=== PATIENT | male | born 1950 | race Caucasian/White ===

== ENCOUNTER 2016-05-17 09:54 | Emergency (ER) | payer BC ==
[~2016-05-17] VITALS: Ht 167.6 cm; Wt 78.6 kg
[~2016-05-17 09:54] MED LIST changes: -MACROBID 1100 MG/CAP PO; -NORCO 325 MG-51 TAB PO; -ZOFRAN ODT4 MG PO
[2016-05-17 09:57] VITALS: BP 101/63; PULSE 81; TEMP 98.4
[2016-05-17 10:43] LABS: PH 7 (5-8); SQUAMOUS EPITHELIAL 0-2 /hpf; URINE APPEARANCE Hazy; URINE BACTERIA None Seen /hpf; URINE BILIRUBIN Negative (NEGATIVE); URINE BLOOD 3+ (NEGATIVE); URINE COLOR Yellow; URINE GLUCOSE Negative (NEGATIVE); URINE KETONE Negative (NEGATIVE); URINE RBC >50 /hpf; URINE UROBILINOGEN Negative (NEGATIVE)
[2016-05-17] MEDS ORDERED: NORCO 325 MG-51 TAB PO (11:17)
[2016-05-17] MEDS ORDERED: MACROBID 1100 MG/CAP PO (11:18)
[2016-05-17 12:14] LABS: BASO # 0.1 (0.0-0.2); BASO % 0.8 % (0.0-2.0); EOS # 0.1 (0.0-0.7); EOS % 0.8 % (0-4.0); GRAN # 4.7 (1.4-6.5); GRAN % 79.3 % (42.2-75.2); LYMPH # 0.7 (1.2-3.4); LYMPH % 12.2 % (20.0-51.0); MEAN CELL VOLUME 91 fl (80.0-100.0); MEAN CORPUSCULAR HGB CONC 31 g/dl (33.0-37.0); MEAN PLATELET VOLUME 10.2 fl (7.4-10.4); MONO # 0.4 (0.1-0.6); MONO % 6.6 % (1.7-9.3); PLATELET COUNT 199 K/mm3 (130-400); RED BLOOD COUNT 3.39 M/mm3 (4.20-5.60); REDCELL DISTRIBUTION WIDTH-CV 13.9 % (11.5-14.5); WHITE BLOOD COUNT 5.9 K/mm3 (4.8-10.8)
[2016-05-17 12:17] LABS: HEMATOCRIT 30.8 % (42.0-52.0); HEMOGLOBIN 9.6 g/dl (13.5-18.0); MEAN CORPUSCULAR HEMOGLOBIN 28 pg (27.0-31.0)
[2016-05-17 12:24] LABS: BILIRUBIN,TOTAL 0.8 mg/dL (0.0-1.0); CREATININE, serum 1.41 mg/dL (0.66-1.25); POTASSIUM 4.3 mmol/L (3.4-5.0); TOTAL PROTEIN 6.9 gm/dL (6.4-8.2)
[2016-05-17 12:41] LABS: ADJUSTED CALCIUM 9.7 mg/dL (8.4-10.2); ALBUMIN 3.9 gm/dL (3.5-5.0); CALCIUM 9.6 mg/dL (8.4-10.2)
[2016-05-17] MEDS ORDERED: ZOFRAN ODT4 MG PO (14:27)
== END 2016-05-17 14:35 | disposition home or self-care (01) ==
LOC: COL.ER 09:54
PROVIDERS: Emergency Medicine
DX: N20.0 Calculus of kidney (principal); Z87.442 Personal history of urinary calculi; I10 Essential (primary) hypertension
CPT/HCPCS: J7030

== ENCOUNTER → 2016-05-17 | Outpatient (CLI) | payer BC ==
[~2016-05-17] MED LIST: ALEVE 220MG220 MG PO; ANTARA PO; APIDRA SOLOS100 U/ML SC; APIDRA100 U/ML SC; ASPIR-LOW81 MG PO; ASPIRIN 81M81 MG/TA2 PO; BENADRYL25 M2 PO; CELLCEPT 5500 MG/TAB PO; GLUCOPHAGE500 MG/TAB PO; LANTUS SOLOS100 U/ML SC; LIPITOR20 MG PO; LOPRESSOR 550 MG/TAB PO; MACROBID 1100 MG/CAP PO; METFORMIN500 MG PO; NORCO 325 MG-51 TAB PO; NOVOLOG FLEX100 U/ML SC; PLAVIX 75MG TAB75 MG PO; PRAVACHOL 40MG40 MG PO; PRAVACHOL40 MG PO; PRINIVIL20 MG PO; PROTONIX 40MG T40 MG PO; SPIRIVA INH IH; SYNTHROID0.1 MG/TAB PO; TRENTAL 400MG400 MG PO; TRENTAL400 MG PO; TRILIPIX 135MG PO; ZESTRIL 10MG10 MG PO; ZESTRIL 20MG TA20 MG PO; ZOFRAN ODT4 MG PO; [UNRECOGNIZED DRUG - OTHER] PO
== END ==
LOC: COL.RAD 09:25
DX: R31.9 Hematuria, unspecified (principal); N20.0 Calculus of kidney; Z87.442 Personal history of urinary calculi; K80.11 Calculus of gallbladder with chronic cholecystitis with obstruction

== ENCOUNTER 2016-10-17 15:44 | Emergency (ER) | payer BC ==
[~2016-10-17] VITALS: Ht 170.2 cm; Wt 78.0 kg
[~2016-10-17 15:44] MED LIST changes: +MACROBID 1100 MG/CAP PO; +NORCO 325 MG-51 TAB PO; +ZOFRAN ODT4 MG PO
[2016-10-17 15:52] VITALS: TEMP 98.8
[2016-10-17 16:40] LABS: BASO # 0.1 (0.0-0.2); BASO % 1.3 % (0.0-2.0); EOS # 0.1 (0.0-0.7); EOS % 1.3 % (0-4.0); GRAN # 4.6 (1.4-6.5); GRAN % 73.4 % (42.2-75.2); LYMPH % 15.1 % (20.0-51.0); MEAN CELL VOLUME 90 fl (80.0-100.0); MEAN CORPUSCULAR HGB CONC 32 g/dl (33.0-37.0); MEAN PLATELET VOLUME 10.3 fl (7.4-10.4); MONO # 0.5 (0.1-0.6); MONO % 8.4 % (1.7-9.3); PLATELET COUNT 254 K/mm3 (130-400); RED BLOOD COUNT 3.52 M/mm3 (4.20-5.60); REDCELL DISTRIBUTION WIDTH-CV 14.2 % (11.5-14.5); WHITE BLOOD COUNT 6.3 K/mm3 (4.8-10.8)
[2016-10-17 16:41] LABS: HEMATOCRIT 31.6 % (42.0-52.0); MEAN CORPUSCULAR HEMOGLOBIN 28 pg (27.0-31.0)
[2016-10-17 16:45] LABS: INR 1.1 (0.8-3.0); PROTHROMBIN TIME 12.6 SECONDS (9.7-12.8)
[2016-10-17 16:47] LABS: PARTIAL THROMBOPLASTIN TIME 29.5 SECONDS (26.0-37.0)
[2016-10-17 16:52] LABS: ADJUSTED CALCIUM 9.7 mg/dL (8.4-10.2); ALANINE AMINOTRANSFERASE 22 U/L (21-72); ALBUMIN 4.3 gm/dL (3.5-5.0); ALKALINE PHOSPHATASE 48 U/L (50-136); ANION GAP 12 mmol/L (7-16); BLOOD UREA NITROGEN 30 mg/dL (9-20); CALCIUM 9.9 mg/dL (8.4-10.2); CARBON DIOXIDE 27 mmol/L (22-30); CHLORIDE 101 mmol/L (98-107); CREATININE, serum 2.64 mg/dL (0.66-1.25); GLUCOSE 83 mg/dL (74-106); POTASSIUM 5.2 mmol/L (3.4-5.0); SODIUM 140 mmol/L (137-145); TOTAL PROTEIN 7.4 gm/dL (6.4-8.2)
[2016-10-17 17:04] LABS: TROPONIN-I < 0.012 ng/mL (0.000-0.034)
[2016-10-17 19:56] VITALS: BP 150/82; PULSE 79
== END 2016-10-17 19:56 | disposition home or self-care (01) ==
LOC: COL.ER 15:44
PROVIDERS: Emergency Medicine
DX: E86.0 Dehydration (principal); N28.9 Disorder of kidney and ureter, unspecified; R55 Syncope and collapse; E11.9 Type 2 diabetes mellitus without complications; I25.10 Atherosclerotic heart disease of native coronary artery without angina pectoris; Z87.891 Personal history of nicotine dependence; Z86.73 Personal history of transient ischemic attack (TIA), and cerebral infarction without residual deficits; Z79.02 Long term (current) use of antithrombotics/antiplatelets; Z85.21 Personal history of malignant neoplasm of larynx
CPT/HCPCS: J2765; J7030

== ENCOUNTER → 2017-07-21 | Outpatient (CLI) | payer BC | LOC: COL.RAD 09:34 | DX: N28.89 Other specified disorders of kidney and ureter (principal); N20.0 Calculus of kidney ==

== ENCOUNTER 2017-08-22 16:30 | Outpatient (RCR) | payer BC | END 2017-11-12 | disposition home or self-care (01) | LOC: MKS.ESL.PT | DX: M75.111 Incomplete rotator cuff tear or rupture of right shoulder, not specified as traumatic (principal) ==

== ENCOUNTER 2018-06-09 17:17 | Observation (INO) | payer MEDICARE, OTHER ==
[2018-06-09] VITALS (9 sets, daily range): BP systolic 11–150; BP diastolic 45–89; PULSE 96–132; TEMP 98.3–99.1
[~2018-06-09] VITALS: Ht 170.2 cm; Wt 68.9 kg
[2018-06-09] MEDS ORDERED: PROTONIX 40MG T40 MG PO (17:57)
--- NOTE | 2018-06-09 18:00 | NUR ---
Patient quickly admitted to room 331. Iv started in AC by retail warehouse associate, patient a hard IV stick. LR to gravity. Called [facility] & verified home meds list. Patient not completely sure of home meds. Laurie took patient to OR. Reported off to Julissa MCCRARY
--- NOTE | 2018-06-09 20:33 | NUR ---
Pts gag reflux assessed as positive. Water provided. Pt swallowing without difficulty.
--- NOTE | 2018-06-09 23:05 | NUR ---
Dr. Aldridge contacted for orders on patient. Pt was supposed to dishcarge but no orders where in the computer and pt does not want to go home tonight. Orders received to make pt OBS. Pt will discharge in AM.
--- NOTE | 2018-06-09 23:20 | NUR ---
gas station supervisor discovered that pt has two active accounts in the computer. Transfer and discharge orders were put in on SDC account, but pt armband and labels match the account for the surgical room pt is in.
--- NOTE | 2018-06-10 06:30 | NUR ---
Pt resting in bed. No distress noted. Pt slept throughout the night without difficulty.
--- NOTE | 2018-06-10 07:08 | NUR ---
Report from Julissa MCCRARY.
[2018-06-10 07:29] VITALS: BP 103/54; PULSE 94; TEMP 98.1
--- NOTE | 2018-06-10 10:08 | NUR ---
DR. RAMÍREZ CONTACTED AND HE HAS DISCHARGED PT. PT ESCORTED TO FRONT BY STAFF AMBULATORY.
[2018-06-11] MEDS ORDERED: PREDNISONE20 MG PO (16:42)
== END 2018-06-10 10:09 | disposition home or self-care (01) ==
LOC: SDCO 17:17 → JCC 17:17 → SDCO 23:05 → JCC 23:05
PROVIDERS: ADMIT Otolaryngology
DX: R13.10 Dysphagia, unspecified (principal); E78.00 Pure hypercholesterolemia, unspecified; I10 Essential (primary) hypertension; E11.9 Type 2 diabetes mellitus without complications; K21.9 Gastro-esophageal reflux disease without esophagitis; J31.0 Chronic rhinitis; I89.0 Lymphedema, not elsewhere classified; I25.2 Old myocardial infarction; Z92.3 Personal history of irradiation; Z79.02 Long term (current) use of antithrombotics/antiplatelets; Z79.82 Long term (current) use of aspirin; Z85.21 Personal history of malignant neoplasm of larynx; Z88.5 Allergy status to narcotic agent; Z88.8 Allergy status to other drugs, medicaments and biological substances; Z87.891 Personal history of nicotine dependence; Z86.73 Personal history of transient ischemic attack (TIA), and cerebral infarction without residual deficits; Z92.21 Personal history of antineoplastic chemotherapy
CPT/HCPCS: OP; G0378; J2250; J2704; J3010; J7120

== ENCOUNTER 2018-06-10 19:31 | Observation (INO) | payer MEDICARE, OTHER ==
[~2018-06-10] VITALS: Ht 170.2 cm; Wt 67.5 kg
[2018-06-10] VITALS (153 sets, daily range): BP systolic 177–195; BP diastolic 88–96; PULSE 97–117; TEMP 98.4; O2SAT 40–100
[2018-06-10 20:08] LABS: BASO % 0.5 % (0.0-2.0); EOS # 0.1 (0.0-0.7); EOS % 1.2 % (0-4.0); GRAN # 5.7 (1.4-6.5); GRAN % 72.5 % (42.2-75.2); HEMOGLOBIN 10.7 g/dl (13.5-18.0); LYMPH # 1.4 (1.2-3.4); LYMPH % 18.4 % (20.0-51.0); MEAN CELL VOLUME 87 fl (80.0-100.0); MEAN CORPUSCULAR HEMOGLOBIN 28 pg (27.0-31.0); MEAN CORPUSCULAR HGB CONC 32 g/dl (33.0-37.0); MEAN PLATELET VOLUME 9.9 fl (7.4-10.4); MONO # 0.6 (0.1-0.6); PLATELET COUNT 169 K/mm3 (130-400); REDCELL DISTRIBUTION WIDTH-CV 14.4 % (11.5-14.5)
[2018-06-10 20:09] LABS: HEMATOCRIT 33.1 % (42.0-52.0)
[2018-06-10 20:20] LABS: ALBUMIN 4.3 gm/dL (3.5-5.0); BILIRUBIN,TOTAL 0.6 mg/dL (0.0-1.0); CALCIUM 9.8 mg/dL (8.4-10.2); CREATININE, serum 0.97 mg/dL (0.66-1.25); POTASSIUM 3.8 mmol/L (3.4-5.0); TOTAL PROTEIN 7.6 gm/dL (6.4-8.2)
--- NOTE | 2018-06-10 22:33 | NUR ---
PT IS A&O X3. PT IS ON ROOM AIR SPO2 96%. UVULA APPEARS SWOLLEN AND STRIDOR IS AUDIBLE. ALL LUNG DIXON SOUNDS CLEAR. PT IS SPEAKING IN FULL SENTENCES THOUGH STRUGGLING AT TIMES TO SPEAK FLUDILY AND HAS A DRY COUGH.
--- NOTE | 2018-06-10 23:44 | NUR ---
PT SLEEPING WITH AUDIBLE STRIDOR. SPO2 85-96% WHEN PT IS SLEEPING THE PT IS AT THIS TIME. WOKE PT AND VISUALLY ASSESSED ORAL AIRWAY. NO CHANGE UVULA SIZE, NO VISUAL OBSTRUCTION. ONCE PT WAS AWAKE SPO2 INCREASED, RANGING 69-99% ON RA. HOSPITALIST ROSMERY CONTACTED AND RECOMMENDED PILLOW PLACED UNDER PTS NECK AND APPLY O2. 2L NC APPLIED TO PT AND PT POSITION/NECK ADJUSTED.
[2018-06-11] VITALS (572 sets, daily range): BP systolic 157–184; BP diastolic 86–104; PULSE 89–120; TEMP 97.8–98.3; O2SAT 71–100
--- NOTE | 2018-06-11 00:14 | NUR ---
PT SPO2 100% ON 2L. O2 LOWERED TO 0.5%, SPO2 READING 100%.
[2018-06-11 00:43] LABS: CALCIUM 9.4 mg/dL (8.4-10.2); CREATININE, serum 0.92 mg/dL (0.66-1.25); POTASSIUM 4.3 mmol/L (3.4-5.0)
--- NOTE | 2018-06-11 00:44 | NUR ---
HOSPITALIST ROSMERY NOTIFIED OF PENTOXIFYLLINE NOT AVAILABLE IN HOSPITAL.
[2018-06-11 05:12] LABS: HEMOGLOBIN 10.1 g/dl (13.5-18.0); MEAN CELL VOLUME 87 fl (80.0-100.0); MEAN CORPUSCULAR HEMOGLOBIN 29 pg (27.0-31.0); MEAN CORPUSCULAR HGB CONC 33 g/dl (33.0-37.0); MEAN PLATELET VOLUME 9.5 fl (7.4-10.4); PLATELET COUNT 156 K/mm3 (130-400); RED BLOOD COUNT 3.55 M/mm3 (4.20-5.60); REDCELL DISTRIBUTION WIDTH-CV 14.2 % (11.5-14.5)
[2018-06-11 05:16] LABS: HEMATOCRIT 30.9 % (42.0-52.0)
[2018-06-11 05:45] LABS: BAND 2 % (0-10); EOSINOPHIL 1 % (0-4); LYMPHOCYTE 7 % (20.0-51.0); MYELOCYTE 1 % (0-0); NEUTROPHILS 89 % (42.0-75.2); PLATELET ESTIMATE NORMAL (NORMAL)
[2018-06-11 05:46] LABS: HYPOCHROMIA 1+; STOMATOCYTE 1+
--- NOTE | 2018-06-11 06:15 | NUR ---
PT FREQUENTLY MOVING DURING BP READINGS THROUGHOUT NIGHT. NIBP REASSESSED WHEN EVENTS OCCUR, RESULTING IN IMPROVED READINGS. 0600 READING THIS AM READING ABNORMALLY HIGH, NIBP REASSESSED THREE TIMES WITH MAINTAINED HIGH READING. HOSPITALIST CONTACTED - PRN MED ORDERS GIVEN.
--- NOTE | 2018-06-11 07:00 | NUR ---
Pt AAOx3 independent in bed, and instructed to call before attempting to get out of bed. Lung auscultation difficult to assess d/t stridor that resonates entire lung avilez. ENT Salome Pitts MD office called and notified of consult.
--- NOTE | 2018-06-11 11:53 | NUR ---
First visit from the special service representative. No needs right now.
--- NOTE | 2018-06-11 13:15 | NUR ---
SW and SW student me with patient to discuss discharge planning. Patient lives independently in [place]. Patients PCP is Dr Moeller and he obtains his medications from [facility]. Patients contact is his ex Daniela. There are no anticipated discharge needs at this time however social work will continue to follow.
[2018-06-11] MEDS ORDERED: PREDNISONE20 MG PO (16:42)
--- NOTE | 2018-06-11 17:38 | NUR ---
Pt transported in wheelchair to ER parking lot, pt ambulated without difficulty to private vehicle
== END 2018-06-11 17:43 | disposition home or self-care (01) ==
LOC: COL.ER 19:31 → ICU 20:36
PROVIDERS: Emergency Medicine; Nurse Practitioner; ADMIT Family Medicine
DX: R06.1 Stridor (principal); J95.5 Postprocedural subglottic stenosis; E78.5 Hyperlipidemia, unspecified; E03.9 Hypothyroidism, unspecified; Z85.89 Personal history of malignant neoplasm of other organs and systems; Z92.3 Personal history of irradiation; Z92.21 Personal history of antineoplastic chemotherapy; Z79.899 Other long term (current) drug therapy; Z79.82 Long term (current) use of aspirin
CPT/HCPCS: G0378; J0360; J1100; J1885; J7030; Q9967

== ENCOUNTER 2018-06-13 10:00 | Emergency (ER) | payer MEDICARE ==
[~2018-06-13] VITALS: Ht 170.2 cm; Wt 69.8 kg
[~2018-06-13 10:00] MED LIST changes: +PREDNISONE20 MG PO
[2018-06-13 10:04] VITALS: TEMP 98.1
[2018-06-13 10:41] LABS: BASO % 0.1 % (0.0-2.0); EOS % 0.1 % (0-4.0); GRAN # 5.7 (1.4-6.5); GRAN % 74.4 % (42.2-75.2); HEMOGLOBIN 10.9 g/dl (13.5-18.0); LYMPH # 1.2 (1.2-3.4); LYMPH % 15.3 % (20.0-51.0); MEAN CELL VOLUME 87 fl (80.0-100.0); MEAN CORPUSCULAR HEMOGLOBIN 28 pg (27.0-31.0); MEAN CORPUSCULAR HGB CONC 32 g/dl (33.0-37.0); MEAN PLATELET VOLUME 9.8 fl (7.4-10.4); MONO # 0.7 (0.1-0.6); MONO % 9.3 % (1.7-9.3); REDCELL DISTRIBUTION WIDTH-CV 14.1 % (11.5-14.5)
[2018-06-13 10:46] LABS: HEMATOCRIT 33.9 % (42.0-52.0); PLATELET COUNT 260 K/mm3 (130-400)
[2018-06-13 10:53] LABS: ALBUMIN 3.9 gm/dL (3.5-5.0); BILIRUBIN,TOTAL 0.4 mg/dL (0.0-1.0); CALCIUM 10.1 mg/dL (8.4-10.2); CREATININE, serum 1.07 mg/dL (0.66-1.25); POTASSIUM 3.5 mmol/L (3.4-5.0)
[2018-06-13 12:00] VITALS: BP 199/97; PULSE 77
== END 2018-06-13 12:03 | disposition home or self-care (01) ==
LOC: COL.ER 10:00 → MEDICAL 10:26 → COL.ER 10:26
PROVIDERS: Family Medicine
DX: R13.10 Dysphagia, unspecified (principal); Z85.21 Personal history of malignant neoplasm of larynx; Z79.82 Long term (current) use of aspirin; Z79.02 Long term (current) use of antithrombotics/antiplatelets
CPT/HCPCS: J2930; J7030

== ENCOUNTER 2018-08-19 16:14 | Inpatient (IN) | payer MEDICARE ==
[~2018-08-19] VITALS: Ht 170.2 cm; Wt 68.8 kg
[~2018-08-19 16:14] MED LIST changes: -CEFTIN500 MG PO; -LEVAQUIN 750MG750 M1 PO; -NORVASC 5MG5 MG/TAB PO; -PROAIR HFA0.09 MG/AC IH; -SYNTHROID0.075 MG/T PO
[2018-08-19 17:33] LABS: BASO # 0.1 (0.0-0.2); BASO % 0.7 % (0.0-2.0); EOS % 0.2 % (0-4.0); GRAN # 8.8 (1.4-6.5); GRAN % 82.8 % (42.2-75.2); LYMPH # 0.9 (1.2-3.4); LYMPH % 8.1 % (20.0-51.0); MEAN CELL VOLUME 88 fl (80.0-100.0); MEAN CORPUSCULAR HGB CONC 32 g/dl (33.0-37.0); MEAN PLATELET VOLUME 10.4 fl (7.4-10.4); MONO # 0.8 (0.1-0.6); MONO % 7.9 % (1.7-9.3); PLATELET COUNT 238 K/mm3 (130-400); RED BLOOD COUNT 3.59 M/mm3 (4.20-5.60); REDCELL DISTRIBUTION WIDTH-CV 13.5 % (11.5-14.5)
[2018-08-19 17:38] LABS: ALANINE AMINOTRANSFERASE < 6 U/L (21-72); ALBUMIN 4.2 gm/dL (3.5-5.0); ALKALINE PHOSPHATASE 71 U/L (50-136); ANION GAP 8 mmol/L (7-16); AST,SGOT 13 U/L (15-37); BILIRUBIN,TOTAL 0.6 mg/dL (0.0-1.0); BLOOD UREA NITROGEN 14 mg/dL (9-20); CALCIUM 9.6 mg/dL (8.4-10.2); CARBON DIOXIDE 29 mmol/L (22-30); CHLORIDE 102 mmol/L (98-107); CREATININE, serum 1.56 (0.66-1.25); GLUCOSE 140 mg/dL (74-106); POTASSIUM 4.1 mmol/L (3.4-5.0); SODIUM 139 mmol/L (137-145); TOTAL PROTEIN 7.3 gm/dL (6.4-8.2)
[2018-08-19 18:10] LABS: ARTERIAL BLOOD GAS PCO2 43.4 mmHg (35-45); ARTERIAL BLOOD GAS PO2 82.2 mmHg (80-100); ARTERIAL BLOOD GAS pH 7.42 (7.35-7.45)
[2018-08-19 18:11] LABS: ARTERIAL BLD GAS O2 SATURATION 95.4 % (92-100); ARTERIAL BLD GAS TCO2 CT 28.8; ARTERIAL BLOOD GAS BASE EXCESS 2.6 (-2-2); ARTERIAL BLOOD GAS HCO3 27.5 meq/L (22-26)
[2018-08-19 18:13] LABS: HEMATOCRIT 31.4 % (42.0-52.0); HEMOGLOBIN 9.9 g/dl (13.5-18.0); MEAN CORPUSCULAR HEMOGLOBIN 28 pg (27.0-31.0)
[2018-08-19 18:26] LABS: COLLECTION METHOD CLEAN CATCH
[2018-08-19 18:32] LABS: MUCOUS Present /lpf; PH 7 (5-8); SQUAMOUS EPITHELIAL None Seen /hpf; URINE APPEARANCE Clear; URINE BACTERIA Rare /hpf; URINE BILIRUBIN Negative (NEGATIVE); URINE BLOOD 1+ (NEGATIVE); URINE COLOR Yellow; URINE GLUCOSE Negative (NEGATIVE); URINE KETONE Negative (NEGATIVE); URINE LEUKOCYTE ESTERASE Negative (NEGATIVE); URINE NITRATE Negative (NEGATIVE); URINE PROTEIN(semi-quant) Negative (NEGATIVE); URINE RBC 0-2 /hpf; URINE UROBILINOGEN Negative (NEGATIVE)
[2018-08-19 20:23] LABS: INR 1.1 (0.8-3.0)
[2018-08-19 20:32] VITALS: BP 158/82; PULSE 101; TEMP 97.3
--- NOTE | 2018-08-19 20:45 | NUR ---
PT ADMITTED TO THE FLOOR. NO NOTED C/O PAIN AT THIS TIME. PT ON ROOM AIR, VITALS WNL. NO ISSUES OR CONSERNS VOICED. PLEASENT AND COOPERATIVE WITH CARES. ABX AND FLUIDS STARTED.
[2018-08-19] MEDS ORDERED: SYNTHROID0.075 MG/T PO (21:15)
[2018-08-19] MEDS ORDERED: NORVASC 5MG5 MG/TAB PO (21:16)
[2018-08-19] MEDS ORDERED: PRINIVIL20 MG PO (21:16)
[2018-08-19] MEDS ORDERED: TRENTAL 400MG400 MG PO (21:20)
[2018-08-19] MEDS ORDERED: ALEVE 220MG220 MG PO (21:38)
[2018-08-20 00:24] VITALS: BP 140/69; PULSE 94; TEMP 99.4
--- NOTE | 2018-08-20 04:53 | NUR ---
PT HAD UNEVENTFUL NOC. TELE CALLED A COUPLE TIME ABOUT HIGH PULSE ALARM, PT WAS UP AMBULATING IN ROOM. VITALS REMAINED WNL OTHERWISE. NO C/O PAIN OR NOTED N/V/D.
[2018-08-20 05:04] VITALS: BP 109/66; PULSE 112; TEMP 98
[2018-08-20 06:04] LABS: BASO % 0.6 % (0.0-2.0); EOS # 0.1 (0.0-0.7); EOS % 0.9 % (0-4.0); GRAN # 4.2 (1.4-6.5); GRAN % 77.7 % (42.2-75.2); LYMPH # 0.6 (1.2-3.4); LYMPH % 11.3 % (20.0-51.0); MEAN CELL VOLUME 88 fl (80.0-100.0); MEAN CORPUSCULAR HGB CONC 32 g/dl (33.0-37.0); MEAN PLATELET VOLUME 10.1 fl (7.4-10.4); MONO # 0.5 (0.1-0.6); MONO % 9.1 % (1.7-9.3); PLATELET COUNT 194 K/mm3 (130-400); RED BLOOD COUNT 3.07 M/mm3 (4.20-5.60); REDCELL DISTRIBUTION WIDTH-CV 13.7 % (11.5-14.5)
[2018-08-20 06:09] LABS: HEMATOCRIT 26.9 % (42.0-52.0); HEMOGLOBIN 8.7 g/dl (13.5-18.0); MEAN CORPUSCULAR HEMOGLOBIN 28 pg (27.0-31.0)
[2018-08-20 06:24] LABS: ALBUMIN 3.5 gm/dL (3.5-5.0); BILIRUBIN,TOTAL 0.3 mg/dL (0.0-1.0); CALCIUM 8.9 mg/dL (8.4-10.2); CREATININE, serum 1.2 (0.66-1.25); POTASSIUM 3.8 mmol/L (3.4-5.0); TOTAL PROTEIN 6.4 gm/dL (6.4-8.2)
[2018-08-20 06:59] VITALS: BP 160/89; PULSE 107; TEMP 97.9
--- NOTE | 2018-08-20 08:41 | NUR ---
Assessment completed, alert/oriented, vital signs stable, denies pain or discomfort, patient stated he is ready to go home and would like to speak with the doctor / I explained that jose he just got here last night that it would probably be a little later before the attending hospitalist saw him today and that in the mean time we will continue the IV Abx and treatments, heart regular/ tachycardic, lungs are clear diminished/ some wheezing noted in upper lobes, has a non-prodcutive cough, he denies other needs at this time and again emphasized that he "needs to get out of here today to take care of some things"
--- NOTE | 2018-08-20 10:20 | NUR ---
SW student attended clinical rounding and met with the patient to discuss discharge planning. The patient lives in [place] alone. The patient reports independence with ADLs and has no DME. The patients PCP is Dr. Armin Moeller and he gets his medications from [facility]. The patient reports no difficulties obtaining his medications. The patient does not have DPOA-HC in EMR and is not interested in completing one at this time. The patient is to discharge home today, 08/20. No additional needs at this time.
[2018-08-20] MEDS ORDERED: CEFTIN500 MG PO (10:21)
[2018-08-20] MEDS ORDERED: LEVAQUIN 750MG750 M1 PO (10:21)
[2018-08-20] MEDS ORDERED: PROAIR HFA0.09 MG/AC IH (10:22)
--- NOTE | 2018-08-20 12:11 | NUR ---
Discharge instructions reviewed with the patient, instructed to follow up with PCP and Pulm. as we have scheduled, instructed to take meds/ abx as prescribed, scripts for Ceftin/ levaquin/ albuterol sent to [facility] for him, IV and tele removed, he is ambulatory and I personally escorted him out the door
== END 2018-08-20 12:12 | disposition home or self-care (01) | DRG 871 ==
LOC: COL.ER 16:14 → MEDICAL 19:07
PROVIDERS: Family Medicine; Nurse Practitioner Family
DX: A41.9 Sepsis, unspecified organism (principal); J18.9 Pneumonia, unspecified organism; N17.9 Acute kidney failure, unspecified; E87.3 Alkalosis; E87.2 Acidosis; E78.5 Hyperlipidemia, unspecified; E03.9 Hypothyroidism, unspecified; I25.10 Atherosclerotic heart disease of native coronary artery without angina pectoris; Z95.5 Presence of coronary angioplasty implant and graft; Z85.21 Personal history of malignant neoplasm of larynx; Z87.891 Personal history of nicotine dependence; E86.0 Dehydration
CPT/HCPCS: 99223-AI; A4216; J0456; J0692; J0696; J3370; J7030; J7050

== ENCOUNTER → 2018-08-19 | Outpatient (CLI) | payer MEDICARE, OTHER ==
[~2018-08-19] VITALS: Ht 170.2 cm; Wt 68.8 kg
[~2018-08-19] MED LIST changes: +CEFTIN500 MG PO; +LEVAQUIN 750MG750 M1 PO; +NORVASC 5MG5 MG/TAB PO; +PROAIR HFA0.09 MG/AC IH; +SYNTHROID0.075 MG/T PO
[2018-08-19 09:31] VITALS: BP 136/77; PULSE 126
[2018-08-19 09:55] VITALS: BP 203/105; PULSE 113
--- NOTE | 2018-08-19 09:55 | NUR ---
PT BROUGHT INTO CT AND LAYING ON TABLE. MONITORING EQUIPMENT PLACED. PT REPORTS BEING COLD PLACED ANOTHER BLANKET ON PT.
[2018-08-19 10:00] VITALS: BP 213/118; PULSE 120
--- NOTE | 2018-08-19 10:00 | NUR ---
IMAGES WERE SENT AND DR GAGE WAS CONTACTED.
[2018-08-19 10:05] VITALS: BP 192/110; PULSE 119
[2018-08-19 10:10] VITALS: BP 203/110; PULSE 109
--- NOTE | 2018-08-19 10:10 | NUR ---
PT ASSISTED OFF THE TABLE AND BROUGHT BACK TO RAD HOLDING. INT DC'D INTACT AND PRESSURE DRESSING APPLIED. PT WAS GIVEN THE TWO DOCTOR APPOINTMENTS, THESE WERE WRITTEN DOWN FOR HIM. HE LEFT AMBULATORY.
--- NOTE | 2018-08-19 10:10 | NUR ---
DR GAGE CALLED BACK AND INFORMED US THAT PT HAS PNEUMONIA. PROCEDURE TO BE CANCELLED. DR GAGE CALLED DR RAMIREZ AND LET HIM KNOW. OFFICE CALLED BACK WITH TIME TODAY FOR PT TO BE SEEN.
[2018-08-19 10:30] VITALS: BP 130/97; PULSE 67
== END ==
LOC: COL.RAD 08-07 09:30
DX: J18.9 Pneumonia, unspecified organism (principal); R91.8 Other nonspecific abnormal finding of lung field

== ENCOUNTER 2018-10-07 07:31 | Day surgery (SDC) | payer MEDICARE, OTHER ==
[~2018-10-07] VITALS: Ht 170.2 cm; Wt 70.4 kg
[~2018-10-07 07:31] MED LIST changes: +CEFTIN500 MG PO; +LEVAQUIN 750MG750 M1 PO; +NORVASC 5MG5 MG/TAB PO; +PROAIR HFA0.09 MG/AC IH; +SYNTHROID0.075 MG/T PO
[2018-10-07 08:05] VITALS: BP 123/74; PULSE 127; TEMP 98.2
[2018-10-07] MEDS ORDERED: ZOFRAN ODT4 MG PO (08:40)
[2018-10-07] MEDS ORDERED: CARAFATE S1 GM/10 ML PO (08:40)
[2018-10-07] MEDS ORDERED: GLUCOPHAGE1000 MG PO ×2 (08:41→08:42)
[2018-10-07 10:50] VITALS: BP 123/74; PULSE 64; TEMP 97.4
--- NOTE | 2018-10-07 10:50 | NUR ---
PATIENT ARRIVES TO BAY FROM OR VOA CART. ALERT AND ORIENTED X 4. DENIES PAIN OR NAUSEA. GIVEN MUFFIN AND WATER. CALL LIGHT IN REACH.
[2018-10-07 11:05] VITALS: BP 141/73; PULSE 68
[2018-10-07 11:20] VITALS: BP 136/70; PULSE 64
[2018-10-07 11:35] VITALS: BP 138/78; PULSE 68; TEMP 97.6
[2018-10-07 11:55] VITALS: BP 134/73; PULSE 68; TEMP 98.2
--- NOTE | 2018-10-07 12:18 | NUR ---
TOLERATED FOOD AND DRINK. DENIES PAIN OR NAUSEA. CALL LIGHT IN REACH.
--- NOTE | 2018-10-07 12:20 | NUR ---
IV DC'D. DISCHARGE INSTRUCTIONS GIVEN, VERBALIZED UNDERSTANDING. STEADY GAIT TO RESTROOM. TAKEN VIA WHEELCHAIR TO PERSONAL VEHICHLE WHERE FRIEND WAS WAITING TO DRIVE HIN HOME.
== END 2018-10-07 12:00 | disposition home or self-care (01) ==
LOC: SDCO
DX: C34.91 Malignant neoplasm of unspecified part of right bronchus or lung (principal); Z79.899 Other long term (current) drug therapy; Z79.82 Long term (current) use of aspirin; Z93.3 Colostomy status; I25.2 Old myocardial infarction; K21.9 Gastro-esophageal reflux disease without esophagitis; Z87.891 Personal history of nicotine dependence; Z86.73 Personal history of transient ischemic attack (TIA), and cerebral infarction without residual deficits; Z85.21 Personal history of malignant neoplasm of larynx; Z86.010 Personal history of colon polyps; Z79.4 Long term (current) use of insulin; I25.10 Atherosclerotic heart disease of native coronary artery without angina pectoris; I65.22 Occlusion and stenosis of left carotid artery; E11.22 Type 2 diabetes mellitus with diabetic chronic kidney disease; I12.9 Hypertensive chronic kidney disease with stage 1 through stage 4 chronic kidney disease, or unspecified chronic kidney disease; N18.3 Chronic kidney disease, stage 3 (moderate); Z79.84 Long term (current) use of oral hypoglycemic drugs
CPT/HCPCS: C1788; J0690; J1644; J2704; J3010; J7120

== ENCOUNTER → 2019-10-04 | Outpatient (CLI) | payer MEDICARE, OTHER ==
[~2019-10-04] MED LIST changes: +CARAFATE S1 GM/10 ML PO; +GLUCOPHAGE1000 MG PO
== END ==
LOC: COL.RAD 10:05
DX: C34.2 Malignant neoplasm of middle lobe, bronchus or lung (principal); N18.9 Chronic kidney disease, unspecified; N20.0 Calculus of kidney

== ENCOUNTER 2020-03-28 12:40 | Day surgery (SDC) | payer MEDICARE, OTHER ==
[2020-03-28] VITALS (9 sets, daily range): BP systolic 112–184; BP diastolic 40–105; PULSE 16–80; TEMP 98.1–98.5
[~2020-03-28] VITALS: Ht 170.2 cm; Wt 66.6 kg
--- NOTE | 2020-03-28 13:57 | NUR ---
PATIENT PORT ALREADY ACCESSED UPON ADMISSION. CALL LIGHT IN REACH DID NOT GET HOLD OF MOIRA FOR RIDE HOME AND HE SAID HE HAS NO ONE ELSE. PERIANESTHESIA NURSE CALLED AND STATED THEY COULD GET HIM A VOUCHER TO GET HOME.
[2020-03-28] MEDS ORDERED: ZESTRIL 5MG5 MG PO (14:03)
[2020-03-28] MEDS ORDERED: MAG-OX 400400 MG/TAB PO (14:04)
[2020-03-28] MEDS ORDERED: ALEVE 220MG220 MG PO (14:08)
[2020-03-28] MEDS ORDERED: PLAVIX 75MG TAB75 MG PO (14:12)
--- NOTE | 2020-03-28 14:14 | NUR ---
PATIENT BROUGHT A LIST OF MEDS IN AND STATED " THAT IS ALL I TAKE AND I TAKE THEM ALL AT 6PM ONCE A DAY" I DID NOT TAKE THE ASPIRIN, I THAT A WEEK AGO FRIDAY"
--- NOTE | 2020-03-28 15:30 | NUR ---
TO RM 8 PER OWN WILL STEADY GAIT. ALERT ORIENTED X3, TALKING TO STAFF. PATIENT STATED " I FEEL GREAT" DENIES PAIN OR DISCOMFORT. DENIES NAUSEA OR VOMITING. INCISION SITES CLEAN DRY INTACT. RECEIVED SPRITE.
--- NOTE | 2020-03-28 15:45 | NUR ---
02 DC'D PATIENT STILL DENIES PAIN OR DISCOMFORT. RECEIVED WILMER BRANDT.
--- NOTE | 2020-03-28 15:45 | NUR ---
PATIENT RESTING QUIETLY- RECEIVED 2 NEW WARM BLANKETS
--- NOTE | 2020-03-28 15:50 | NUR ---
AMBULATED TO BATHROOM WITH ASSIST
--- NOTE | 2020-03-28 19:52 | NUR ---
Up to bathroom at this time with stand by assist. Denies nausea/shortness of breath.
--- NOTE | 2020-03-28 20:14 | NUR ---
Resting in bed. Assessment complete. Lungs diminshed throughout. Heart sounds normal. Bowels active x4. Pulses present throughout. No edema noted. PAC to left chest without complications. Reports 6/10 ABD pain at this time. No PRNs. Spoke with Dr. Flores. Given [place] 5/325 1-2 tablets Q4H PRN. Will provide to patient. Patient denied other needs at this time. Call light in reach.
--- NOTE | 2020-03-28 22:00 | NUR ---
Patient in and out of bed. Stumbling on feet at times. Will move closer to nurses station for safety purposes.
--- NOTE | 2020-03-28 22:30 | NUR ---
Patient reported nausea. Spoke with Dr. Flores. Obtained order for zofran 4mg IV Q6H. Also spoke with Dr. Flores regarding patient elevated BP. Requested PRN hydralazine. Per Dr. Flores, okay with BP in 170s, monitor during night and call if nurse uncomfortable with BP. Will continue to monitor patient.
--- NOTE | 2020-03-28 23:28 | NUR ---
Reported 5/10 ABD pain. Given PRN norco.
--- NOTE | 2020-03-29 00:51 | NUR ---
Up to restroom and returned to bed. Call light in reach.
[2020-03-29 01:35] VITALS: BP 115/78; BP 153/81; PULSE 114; TEMP 98.8
--- NOTE | 2020-03-29 04:00 | NUR ---
Up to restroom and returned to bed. Denies needs. Call light in reach.
[2020-03-29 04:18] VITALS: BP 141/80; PULSE 114; TEMP 98.4
--- NOTE | 2020-03-29 05:24 | NUR ---
Up to restroom and returned to bed. Reporting ABD pain. Given PRN norco. WIll monitor.
--- NOTE | 2020-03-29 05:40 | NUR ---
Patient was up to restroom several times throughout night. Required x2 doses of norco for pain control and x1 dose of zofran for nausea. Otherwise uneventful night. Resting in bed this AM. Call light in reach.
--- NOTE | 2020-03-29 07:17 | NUR ---
Report given to DEMETRA Barnett
[2020-03-29 08:00] VITALS: BP 129/76; PULSE 106; TEMP 98.3
--- NOTE | 2020-03-29 09:12 | NUR ---
SW met with the patient to discuss discharge plan. The patient lives alone in [place]. He reports independence with ADLs and does not have any DME. The patient's PCP is Dr. Armin Moeller and he receives his medications from [facility]. The patient does not have a DPOA-HC and he was not interested in completing a DPOA-HC at this time. The patient states that he is not , has no children, his parents have , and he states that he has no siblings. His [id number] is his ex-, Daniela (ph#[phone]). He states that he would like to keep her as his [id number] and emergency contact. The patient plans to return home upon discharge. No additional needs at this time.
--- NOTE | 2020-03-29 09:45 | NUR ---
Patient alert and oriented, answers questions appropriately. See assessment. No c/o at this time
--- NOTE | 2020-03-29 10:26 | NUR ---
The patient's RN notified WIL that the patient needs a ride back home. WIL contacted [facility] and provided a taxi voucher to the patient's RN. [facility] plans to meet the patient at the ED entrance. No additional needs at this time.
--- NOTE | 2020-03-29 10:35 | NUR ---
Discharge instructions reveiwed with patient, verbalized understanding. Discharged via wheelchair to auto/home at 1035.
== END 2020-03-29 10:35 | disposition home or self-care (01) ==
LOC: SDCO 12:40 → JCC 19:14 → SURG 22:57 → SDCO 03-29 10:35
DX: N20.1 Calculus of ureter (principal); E78.00 Pure hypercholesterolemia, unspecified; E03.9 Hypothyroidism, unspecified; I25.2 Old myocardial infarction; E11.22 Type 2 diabetes mellitus with diabetic chronic kidney disease; I12.9 Hypertensive chronic kidney disease with stage 1 through stage 4 chronic kidney disease, or unspecified chronic kidney disease; N18.30 Chronic kidney disease, stage 3 unspecified; E83.42 Hypomagnesemia; E78.5 Hyperlipidemia, unspecified; I25.10 Atherosclerotic heart disease of native coronary artery without angina pectoris; I73.9 Peripheral vascular disease, unspecified; Z79.899 Other long term (current) drug therapy; Z20.828 Contact with and (suspected) exposure to other viral communicable diseases; Z79.890 Hormone replacement therapy; Z79.84 Long term (current) use of oral hypoglycemic drugs; Z87.891 Personal history of nicotine dependence; Z88.6 Allergy status to analgesic agent; Z95.5 Presence of coronary angioplasty implant and graft; Z85.118 Personal history of other malignant neoplasm of bronchus and lung; Z85.21 Personal history of malignant neoplasm of larynx; Z79.02 Long term (current) use of antithrombotics/antiplatelets; Z92.3 Personal history of irradiation; Z92.21 Personal history of antineoplastic chemotherapy
CPT/HCPCS: OP; C1769; J0690; J1100; J2405; J2704; J3010; J7030; Q9967

== ENCOUNTER 2020-08-18 20:30 | Emergency (ER) | payer MEDICARE, OTHER ==
[~2020-08-18] VITALS: Ht 170.2 cm; Wt 60.0 kg
[~2020-08-18 20:30] MED LIST changes: +ENTRESTO 24 MG1 EACH PO; +LEVOXYL0.1 MG PO; +LIPITOR 80MG80 MG PO; +MAG-OX 400400 MG/TAB PO; +PACERONE400 MG PO; +VENTOLIN0.09 MG IH; +ZESTRIL 5MG5 MG PO
[2020-08-18 20:41] VITALS: TEMP 99
[2020-08-18 21:04] LABS: BASO % 0.6 % (0.0-2.0); EOS % 0.6 % (0-4.0); GRAN # 6.1 (1.4-6.5); GRAN % 83.4 % (42.2-75.2); LYMPH # 0.7 (1.2-3.4); LYMPH % 9.1 % (20.0-51.0); MEAN CELL VOLUME 88 fl (80.0-100.0); MEAN CORPUSCULAR HGB CONC 30 g/dl (33.0-37.0); MEAN PLATELET VOLUME 9.2 fl (7.4-10.4); MONO # 0.4 (0.1-0.6); MONO % 5.9 % (1.7-9.3); PLATELET COUNT 225 K/mm3 (130-400); REDCELL DISTRIBUTION WIDTH-CV 15.1 % (11.5-14.5)
[2020-08-18 21:10] LABS: HEMATOCRIT 31.7 % (42.0-52.0); HEMOGLOBIN 9.5 g/dl (13.5-18.0); MEAN CORPUSCULAR HEMOGLOBIN 26 pg (27.0-31.0)
[2020-08-18 21:11] LABS: INR 1.2 (0.8-3.0); PROTHROMBIN TIME 12.9 SECONDS (9.7-12.8)
[2020-08-18 21:14] LABS: PARTIAL THROMBOPLASTIN TIME 47.2 SECONDS (26.0-37.0)
[2020-08-18 21:18] LABS: ALBUMIN 3.7 gm/dL (3.5-5.0); BILIRUBIN,TOTAL 0.3 mg/dL (0.0-1.0); CREATININE, serum 1.81 (0.66-1.25); MAGNESIUM 1.6 mg/dL (1.6-2.3); POTASSIUM 4.4 mmol/L (3.4-5.0); TOTAL PROTEIN 7.2 gm/dL (6.4-8.2)
[2020-08-18 21:28] LABS: TROPONIN-I 0.029 ng/mL (0.000-0.035)
[2020-08-18 22:28] LABS: COLLECTION METHOD CLEAN CATCH
[2020-08-18 22:34] LABS: MUCOUS Present /lpf; PH 5 (5-8); SQUAMOUS EPITHELIAL None Seen /hpf; URINE APPEARANCE Clear; URINE BACTERIA None Seen /hpf; URINE BILIRUBIN Negative (NEGATIVE); URINE BLOOD 1+ (NEGATIVE); URINE COLOR Yellow; URINE GLUCOSE Negative (NEGATIVE); URINE KETONE Negative (NEGATIVE); URINE LEUKOCYTE ESTERASE Trace (NEGATIVE); URINE NITRATE Negative (NEGATIVE); URINE PROTEIN(semi-quant) Negative (NEGATIVE)
[2020-08-18] MEDS ORDERED: OMNICEF 300MG300 MG PO (22:46)
[2020-08-18 22:54] VITALS: BP 111/78; PULSE 74
== END 2020-08-18 23:07 | disposition home or self-care (01) ==
LOC: COL.ER 20:30
PROVIDERS: Emergency Medicine
DX: N39.0 Urinary tract infection, site not specified (principal); R74.8 Abnormal levels of other serum enzymes; Z85.21 Personal history of malignant neoplasm of larynx; Z88.5 Allergy status to narcotic agent; Z79.51 Long term (current) use of inhaled steroids; Z79.890 Hormone replacement therapy; Z79.02 Long term (current) use of antithrombotics/antiplatelets; Z79.82 Long term (current) use of aspirin
CPT/HCPCS: J0696; J2405

== ENCOUNTER 2021-01-02 17:46 | Inpatient (IN) | payer MEDICARE ==
[~2021-01-02] VITALS: Ht 170.2 cm; Wt 45.0 kg
[~2021-01-02 17:46] MED LIST changes: +OMNICEF 300MG300 MG PO
[2021-01-02 18:24] LABS: ALBUMIN 3.3 gm/dL (3.5-5.0); BILIRUBIN,TOTAL 1.1 mg/dL (0.0-1.0); CALCIUM 8.2 mg/dL (8.4-10.2); CREATININE, serum 1.33 (0.66-1.25); POTASSIUM 4.5 mmol/L (3.4-5.0); TOTAL PROTEIN 6.8 gm/dL (6.4-8.2)
[2021-01-02 18:31] LABS: BASO % 0.2 % (0.0-2.0); EOS % 0.4 % (0-4.0); GRAN # 4.2 (1.4-6.5); GRAN % 83.8 % (42.2-75.2); LYMPH # 0.5 (1.2-3.4); LYMPH % 10.6 % (20.0-51.0); MEAN CELL VOLUME 76 fl (80.0-100.0); MEAN CORPUSCULAR HGB CONC 31 g/dl (33.0-37.0); MEAN PLATELET VOLUME 10.2 fl (7.4-10.4); MONO # 0.2 (0.1-0.6); MONO % 4.4 % (1.7-9.3); PLATELET COUNT 221 K/mm3 (130-400); RED BLOOD COUNT 3.18 M/mm3 (4.20-5.60); REDCELL DISTRIBUTION WIDTH-CV 15.7 % (11.5-14.5)
[2021-01-02 18:38] LABS: HEMATOCRIT 24.2 % (42.0-52.0); HEMOGLOBIN 7.4 g/dl (13.5-18.0); MEAN CORPUSCULAR HEMOGLOBIN 23 pg (27.0-31.0)
[2021-01-02 18:44] LABS: TROPONIN-I 0.04 ng/mL (0.000-0.035)
[2021-01-02 19:01] LABS: TSH w REFLEX 6.44 uIU/mL (0.350-4.940)
--- NOTE | 2021-01-02 21:46 | NUR ---
REPORT RECIEVED, CARE ASSUMED
[2021-01-02 22:11] VITALS: BP 173/72; PULSE 105; TEMP 98.4
--- NOTE | 2021-01-02 22:22 | NUR ---
PT ARRIVES TO FLOOR PER CART. CHANGED INTO GOWN. VERY FRAIL AND UNKEPT. APPEARS AND SMELLS TO BE FECES CAKED ON BOTTOM OF FEET IN TOES AND FINGERS. ATTEMPTED TO CLEAN, PT VERBALLY ABUSE TO STAFF SAYING HES TIRED OF BEING FUCKED WITH. WILL NOT ANSWER ASSESSMENT QUESTIONS, UNABLE TO COMPLETE MED REC UNKNOWN NEXT OF KIN TO CONTACT HE WAS A PD WELFARE CHECK BY NEIGHBOR CALLING IN. IV FLUIDS INFUSED ALONG W ANTIBOTIC. ORDERS REVIEWED. CALL LIGHT WI REACH. BED ALARM ON. WARM BLANKETS PROVIDED. NPO. MONITORING.
--- NOTE | 2021-01-02 22:28 | NUR ---
REPORT TROP TO ALEX FIELDS, UNSURE HOW TO COMPLETE MED REC. PT NOT TAKING ANY MEDS IN CURRENT CONDITION. NPO- WILL NOT RECIEVE ANYTHING BY MOUTH AND WILL ATTEMPT TO CALL PHARMACY TOMORROW PASS ONTO DAY SHIFT. WILL NEED EVAL BY [facility]. REPORTED TO LUKAS FIELDS, PT POOR CONDITION AND NON COOPERATIVE.
[2021-01-02 23:17] VITALS: BP 169/73; PULSE 105; TEMP 98.4
--- NOTE | 2021-01-02 23:26 | NUR ---
BLOOD SUGAR REFUSAL BY PT. STATES OVER HIS BODY WILL WE POKE HIM AGAIN. LUKAS FIELDS NOTIFIED.
[2021-01-03 07:22] VITALS: BP 158/93; PULSE 95; TEMP 98.6
--- NOTE | 2021-01-03 08:00 | NUR ---
PT IS RESTING QUIETLY IN BED. SEEMS TO BE TUOLUMNE. IS RESPONSIVE TO NAME WHEN SPOKEN LOUDLY. MOSTLY RESPONDS WITH YES/NO ET SHAKES HEAD WHEN ASKED QUESTIONS. PT APPEARS TO BE VERY THIN ET MALNOURSIHED. PT IS COOPERATIVE WITH CARES @ THIS TIME. DENIES PAIN OR OTHER NEEDS. BED ALARM IS TURNED ON.
--- NOTE | 2021-01-03 10:32 | NUR ---
I was asked to have a goal of care discussion with "Indio" Destiney García. He is very hard of hearing and offers little conversation in general. I talked with him about his situation of being found very weak and not able to care for himself. He nodded understanding. I asked if he was in pain and he shook his head no. I asked if I could talk with his friend Daniela Richardson, and he said yes. He acknowleddged that he was very tired but at this ipoint he had his eyes open and made eye contact. I left a message for Daniela and requested a call back. I spoke with Amy at Dr Irby's office. They do not have any advanced directives for this patient. he was to be seen on 12/12/2020 but did not keep that appt or respond to their attempts to reach out to him. He was last seen by them in 09/15 when he fell and hit his shoulder. He requested a handicapped placard and Dr Moeller noted a significant health decline. Dr Glynn's office last saw him in july for a port flush and his last office visit was 06/18. When I went back to talk with him, he would shake his head or nod in response to my questions early on. When I asked him about something very important--he opened his eyes and made eye contact. I told him that in the hospital if his heart was to stop or he stopped breathing, we would do everything we could to try to bring him back to life--including a tube down his throat and pumping on his chest. I asked if he wanted us to do that and he shook his head no. I then stated, "If it is your time to , do you want us to let you go?" and he said "Yes". I told him I would let his doctor know and he noded. He closed his eyes and offered no more input. Dr Oliveira was advised of this conversation.
--- NOTE | 2021-01-03 11:07 | NUR ---
Sw completed rounds with team. Pt was not speaking. Sw could not complete intake at this time. Pt is not clear on next of kin. Pt will need DPOA-HC made. 9 am Adalgisa tried to call Daisyt, Friend ph [phone] and step daughter, Geni ph [phone] both did not answer. Adalgisa left voicemail. 11:08 PM. Needs: Intake & DPAO-HC made.
--- NOTE | 2021-01-03 11:30 | NUR ---
Family of patient came to see him. Patient has been over 90's systolic. Patient requested soemthing to drink. Patient is able to speak when he wants, able to sit aside in the bed and use the urinal. Family asked to be contacted by director social welfare to see how to stablish the POA, if a notary is necessary and who has to be present. Please call back to Jere [phone] or daughter in law to provide detailed information.
--- NOTE | 2021-01-03 11:41 | NUR ---
I recieved a call from step daughter Geni to inquire about Indio and how he was doing. She had been contacted by hospital admissions [place] to provide information about Indio and he had given permission for them to talk with Geni. He is sleeping now but Geni reports that she would like to be with patient and will plan to visit this afternoon. She reports that Indio is very stubborn and will take help from family at times but then will report he is ok. He has a biological son in [place] but he and the son do not get along or have any contact. Daniela, her mother, is civil with pt. He also has 2 brothers, a sister, and his mother in [place] but they have little contact. She will contact his family to give them an update. I did advise her that he had made himself a DNR/DNI. She is also aware that he will not be able to return home.
--- NOTE | 2021-01-03 12:19 | NUR ---
First visit from the business assistant. Patient was asleep. Field Staff Manager prayed for patient while standing outside their door.
[2021-01-03 13:05] VITALS: BP 133/84; PULSE 101; TEMP 98.7
--- NOTE | 2021-01-03 13:25 | NUR ---
Step daughter is planning on coming to see pt this afternoon. She will talk with pt's son who is estranged, to see if he would like to come instead but it is doubtful.
--- NOTE | 2021-01-03 14:11 | NUR ---
PT TAKEN TO RADIOLOGY VIA WHEELCHAIR FOR SWALLOW STUDY.
--- NOTE | 2021-01-03 14:57 | NUR ---
sawmill production worker spoke with Daniela and confirmed that she is patient's ex spouse. Daniela stated that together they have a son, Jere and that Harper is Daniela's daughter and step daughter to patient. Worker spoke with Harper and Jere and confirmed that they will both be available to be patient's durable power of extrusion press operator and will let patient decide who he wishes. Both will let patient decide who he want's to be his visitor. Worker provided information on durable power of extrusion press operator for health care and offered to assist with it's completion. Will await patient's decisions.
--- NOTE | 2021-01-03 15:22 | NUR ---
Pt was asked if he wanted his son or step daughter to visit. He reported his son by nodding his head when asked if he wanted his son to visit. I then talked with him about DP-, what it was, why it was important to identify someone he trusted to make decisions for him when he no longer could. I asked him if he had anyone that he would trust to do this--he shook his head no.
--- NOTE | 2021-01-03 16:23 | NUR ---
farmworker egg producing farm met with patient's son, Jere, and patient. Jere had his mother and step sister on speaker phone. Patient opened his eyes and then closed them and didn't speak. Worker provided hospice and [facility] information and above family members voiced approval of hospice care for patient. Family will visit again in the morning and worker gave a referral to Rosaura at [facility]. Worker collaborated with Dr Oliveira and Debra regarding the above information. Will await screen by [facility].
[2021-01-03 16:30] LABS: MEAN CELL VOLUME 78 fl (80.0-100.0); MEAN CORPUSCULAR HGB CONC 30 g/dl (33.0-37.0); MEAN PLATELET VOLUME 9.3 fl (7.4-10.4); PLATELET COUNT 209 K/mm3 (130-400); RED BLOOD COUNT 4.54 M/mm3 (4.20-5.60); REDCELL DISTRIBUTION WIDTH-CV 15.6 % (11.5-14.5)
[2021-01-03 16:34] LABS: HEMATOCRIT 35.3 % (42.0-52.0); HEMOGLOBIN 10.7 g/dl (13.5-18.0); MEAN CORPUSCULAR HEMOGLOBIN 24 pg (27.0-31.0)
[2021-01-03 16:44] LABS: CALCIUM 9.2 mg/dL (8.4-10.2); CREATININE, serum 1.8 (0.66-1.25); POTASSIUM 3.8 mmol/L (3.4-5.0)
[2021-01-03 16:47] VITALS: BP 99/72; PULSE 103; TEMP 97.4
[2021-01-03 17:23] LABS: BAND 3 % (0-10); LYMPHOCYTE 5 % (20.0-51.0); NEUTROPHILS 92 % (42.0-75.2); PLATELET ESTIMATE NORMAL (NORMAL)
[2021-01-03 17:24] LABS: ANISOCYTOSIS 1+; HYPOCHROMIA 3+
--- NOTE | 2021-01-03 17:29 | NUR ---
PT IS RESTING QUIETLY IN BED, AWAKENS EASILY. PT IS COOPERATIVE WITH CARES. DENIES PAIN. PT STATES NO WHEN ASKED IF HE'S HUNGRY OR WANTS TO EAT. PT IS INCONTINENT OF URINE, BRIEFS CHANGED ET PT CLEANED. WARM BLANKETS PLACED ON PT.
[2021-01-03 19:19] VITALS: BP 64/44; PULSE 75; TEMP 97.8
--- NOTE | 2021-01-03 19:50 | NUR ---
Patient is in bed, alert but not oriented, pale, weak, Blood pressure in 60s/40. PA notified. Fluids to be administered.
[2021-01-03 23:46] VITALS: BP 99/60; PULSE 92
[2021-01-04 03:28] VITALS: BP 82/54; PULSE 81; TEMP 97.8
--- NOTE | 2021-01-04 06:59 | NUR ---
Patient is been calm sleeping most of the night. He still shows low blood pressure related with his position in bed. Family will come later expecting seeing SW and arrange the POA. No further needs at this time.
[2021-01-04 08:40] LABS: MEAN CELL VOLUME 81 fl (80.0-100.0); MEAN CORPUSCULAR HGB CONC 29 g/dl (33.0-37.0); MEAN PLATELET VOLUME 9.2 fl (7.4-10.4); PLATELET COUNT 206 K/mm3 (130-400); RED BLOOD COUNT 4.06 M/mm3 (4.20-5.60); REDCELL DISTRIBUTION WIDTH-CV 15.8 % (11.5-14.5)
[2021-01-04 08:47] VITALS: BP 82/46; PULSE 84; TEMP 98.1
[2021-01-04 08:49] LABS: CALCIUM 8.7 mg/dL (8.4-10.2); CREATININE, serum 1.78 (0.66-1.25); POTASSIUM 3.4 mmol/L (3.4-5.0)
[2021-01-04 09:08] LABS: HEMATOCRIT 32.7 % (42.0-52.0); HEMOGLOBIN 9.5 g/dl (13.5-18.0); MEAN CORPUSCULAR HEMOGLOBIN 23 pg (27.0-31.0)
[2021-01-04 09:20] LABS: ANISOCYTOSIS 1+; BAND 1 % (0-10); LYMPHOCYTE 7 % (20.0-51.0); NEUTROPHILS 89 % (42.0-75.2); PLATELET ESTIMATE NORMAL (NORMAL)
[2021-01-04 09:22] LABS: HYPOCHROMIA 3+
--- NOTE | 2021-01-04 09:26 | NUR ---
patient able to shake head yes/no when asked direct questions during assessment.
--- NOTE | 2021-01-04 09:33 | NUR ---
Pt is awake and responding to his family at this point. He took several spoonfuls of Pepsi-thickened and appeared to tolerate them well. His son and daughter are here to visit and then proceed to the [facility] to make arrangements for their father. Support provided.
[2021-01-04 12:37] VITALS: BP 93/53; PULSE 94; TEMP 98.8
[2021-01-04] MEDS ORDERED: SYSTANE 0.3-0.1 EACH OP (12:51)
[2021-01-04] MEDS ORDERED: DULCOLAX S10 MG/SUPP RC (12:52)
[2021-01-04] MEDS ORDERED: TRANSDERM-0.5 MG/21 TD (12:52)
[2021-01-04] MEDS ORDERED: ROXANOL 20MG20 MG/ML SL (12:53)
[2021-01-04] MEDS ORDERED: ATIVAN 1MG T1 MG/TAB PO (12:53)
--- NOTE | 2021-01-04 13:26 | NUR ---
field crop harvest worker attended clinical rounds and then met with patient, Jere, Harper, and Daniela (ex ) and assisted with completion of a durable power of admitted attorneys for health care and then arranged a notary for patient's signature on a power of admitted attorneys. Worker provided information on the durable power of admitted attorneys for health care and patient verbalized understanding and willfully signed document. Son, Jere, and step daughter, Harper provided explanation of power of admitted attorneys and patient signed document willingly. Rosaura with the [facility] accepts patient to day and worker arranged [facility] to transport at 1:30. EjreKeyannaHarper and Daniela were notified of transfer plans.
--- NOTE | 2021-01-04 14:47 | NUR ---
patient is discharging to [facility] hospice house, he is being transported by [facility], family present at time of discharge, IV was discontinued and Hygiene care was offered prior to discharge
== END 2021-01-04 14:53 | disposition hospice, inpatient (51) | DRG 640 ==
LOC: COL.ER 17:46 → SURG 19:45
PROVIDERS: Emergency Medicine; Physician Assistant; Student in an Organized Health Care Education/Training Program; ADMIT Internal Medicine
DX: R62.7 Adult failure to thrive (principal); E43 Unspecified severe protein-calorie malnutrition; Z68.1 Body mass index [BMI] 19.9 or less, adult; J98.11 Atelectasis; I50.22 Chronic systolic (congestive) heart failure; I13.0 Hypertensive heart and chronic kidney disease with heart failure and stage 1 through stage 4 chronic kidney disease, or unspecified chronic kidney disease; N18.30 Chronic kidney disease, stage 3 unspecified; E11.22 Type 2 diabetes mellitus with diabetic chronic kidney disease; Z20.822 Contact with and (suspected) exposure to COVID-19; Z66 Do not resuscitate; Z51.5 Encounter for palliative care; I25.10 Atherosclerotic heart disease of native coronary artery without angina pectoris; R13.10 Dysphagia, unspecified; D64.9 Anemia, unspecified; E03.9 Hypothyroidism, unspecified; K21.9 Gastro-esophageal reflux disease without esophagitis; R79.89 Other specified abnormal findings of blood chemistry; E78.5 Hyperlipidemia, unspecified; R53.81 Other malaise; Z79.82 Long term (current) use of aspirin; Z95.5 Presence of coronary angioplasty implant and graft; Z85.118 Personal history of other malignant neoplasm of bronchus and lung; Z85.21 Personal history of malignant neoplasm of larynx; Z92.21 Personal history of antineoplastic chemotherapy; Z92.3 Personal history of irradiation; Z91.81 History of falling; Z88.6 Allergy status to analgesic agent
CPT/HCPCS: 99223-AI; 99232-AI; 99239; C9113; J0696; J1940; J7030; J7040